=== PATIENT | male | born 1960 | race Caucasian/White ===

== ENCOUNTER 2025-03-15 06:20 | Day surgery (SDC) | payer OTHER ==
[~2025-03-15] VITALS: Ht 175.3 cm; Wt 104.5 kg
[~2025-03-15 06:20] MED LIST: ACETAMINOPHEN500 MG PO; ASPIR-LOW81 MG PO; GLIPIZIDE XL2.5 MG PO; IBUPROFEN600 MG PO; LIPITOR40 MG PO; LISINOPRIL2.5 MG PO; METFORMIN HCL500 M2 PO; MIDAZOLAM HCL 5 MG/5 ML VIAL IV PRN; OXYCODON-ACETA1 EAC2 PO; fentaNYL citrate 100 MCG/2 ML VIAL IV PRN
[2025-03-15 06:39] VITALS: BP 144/82
[2025-03-15] MEDS ORDERED: PRAVASTATIN SOD80 MG PO (06:41)
[2025-03-15] MEDS ORDERED: MIDAZOLAM HCL 5 MG/5 ML VIAL ONE (06:47)
[2025-03-15] MEDS ORDERED: fentaNYL citrate 100 MCG/2 ML VIAL ONE (06:47)
[2025-03-15] MEDS ORDERED: CEFAZOLIN SODIUM 2 GM/20 ML SYR IV SCH (07:00)
[2025-03-15] MEDS ORDERED: IBLOOD GLUCOSE TEST STRIP 1 EA TEST VI PRN (07:00)
[2025-03-15] MEDS ORDERED: LIDOCAINE HCL 1% 5 ML SDV INJ ONE (07:00)
[2025-03-15] MEDS ORDERED: LACTATED RINGER'S 1,000 ML IV SCH (07:00)
--- NOTE | 2025-03-15 07:20 | NUR ---
VISITED DURING SPIRITUAL CARE ROUNDS. PT SUPPORTED BY IN ROOM. BOTH IN OVERALL GOOD SPIRITS. NO IMMEDIATE NEEDS. REFORESTATION WORKER PROVIDED SUPPORTIVE PRESENCE, HOSPITALITY, PRAYER, FACILITATED INTERACTION WITH THERPAY ANIMAL. PT AND EXPRESSED GRATITUDE.
--- NOTE | 2025-03-15 08:44 | NUR ---
03/15/25 0844 Sophia Campos PATIENT REPOSITIONS HIMSELF ONTO HIS BACK. HOB IS ELEVATED. WATER GIVEN. PATIENT IS DRINKING THAT AND TOLERATING THAT WELL.
[2025-03-15 09:04] VITALS: BP 164/99
--- NOTE | 2025-03-16 11:56 | OR ---
[facility] [address], [place] [address] Signed DATE OF OPERATION: 03/15/2025 SURGEON: Casie Wade MD PREOPERATIVE DIAGNOSIS: History of polyps x3 in 2021. 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 PROCEDURE: Total colonoscopy to cecum with biopsy of ileocecal valve. ANESTHESIA: Intravenous sedation, fentanyl 100 mcg, Versed 6 mg. INDICATION: This 65-year-old white man is patient Dr. Sarah Gallego and known to me from the past having undergone colonoscopy in September 2021, where he was found to have three polyps excised by snare technique. They were all tubular adenomas, none of them with high-grade dysplasia. This included the right colon, cecum and rectum. He currently has no symptoms of bleeding diarrhea or constipation and no family history of colon cancer. 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 He is admitted at this time to undergo surveillance colonoscopy. He understands the risk of bleeding, infection, and perforation. FINDINGS: The prep was good. There were some kernels of colon indicative of some fiber of course. 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 There were no polyps, specifically no diverticula. DESCRIPTION OF PROCEDURE: The patient was brought to the endoscopy suite and placed in lateral decubitus position, given intravenous sedation to the point of slurred speech and nystagmus. Digital rectal examination was normal. An Olympus video colonoscope was passed in the rectum and manipulated throughout the colon ultimately intubating the cecum itself. The ileocecal valve appeared to have hyperplasia, though no specific polyp. It was biopsied. The scope was then withdrawn. Examination throughout showed no sign of polyps, diverticular formation, colitis, or Electronically Signed By: CASIE WADE MD 03/16/25 1156 PATIENT NAME: JUSTIN CARDENAS OPERATIVE REPORT DATE OF : 62 REPORT #: [id number] PHYSICIAN: CASIE WADE MD PCP: SARAH GALLEGO MD REPORT IS CONFIDENTIAL AND NOT TO BE RELEASED WITHOUT AUTHORIZATION [facility] [address], [place] [address] Signed cancer. There were few kernels of colon indicative of fiber intake during the prep time, but in general, the prep was quite good overall. Retroflexed view was normal. The scope was removed. The patient was taken to the recovery room in good condition. 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 PLAN: Recommend repeat colonoscopy in 10 years, sooner if clinically indicated. He will return to the ongoing care of Dr. Sarah Gallego. MD RICK Hall/MITCH /[id number] cc: Sarah Gallego MD Copies: SARAH GALLEGO DMD ~ Electronically Signed By: CASIE WADE MD 03/16/25 1156 PATIENT NAME: JUSTIN CARDENAS OPERATIVE REPORT DATE OF : 62 REPORT #: [id number] PHYSICIAN: CASIE WADE MD PCP: SARAH GALLEGO MD REPORT IS CONFIDENTIAL AND NOT TO BE RELEASED WITHOUT AUTHORIZATION
--- NOTE | 2025-03-17 20:24 | PATH ---
[facility] [address], [place] [address] Signed SPECIMEN(S): A ILEOCECAL VALVE COLON BIOPSY SPECIMEN SOURCE: A. ILEOCECAL VALVE COLON BIOPSY CLINICAL HISTORY: Personal history of polyps in 2021 FINAL PATHOLOGIC DIAGNOSIS: Colon, ileocecal valve, biopsy: - Ileocecal valve mucosa with minute foci of extravasated blood beneath the mucosal surface; consistent with procedure related change. - Otherwise no specific histopathologic abnormality identified. - Negative for acute, chronic, and granulomatous inflammation. - Negative for dysplasia and malignancy. SDL MICROSCOPIC EXAMINATION: Histologic sections of all submitted blocks are examined by light microscopy. These findings, together with the gross examination, support the pathologic diagnosis. GROSS DESCRIPTION: The specimen, labeled and designated "Neymar, ileocecal valve colon biopsy," is received in formalin and consists of one nguyen soft tissue fragment, 0.4 cm. Entirely submitted in (A1). VB (under the direct supervision of a pathologist) The Gross Description was prepared using a voice recognition system. The report was reviewed for accuracy; however, sound-alike word errors, addition and/or deletions may occur. If there are any questions about this report, please contact Client Services. ADDITIONAL NOTES: Immunohistochemical and/or in situ hybridization studies if performed in this case included appropriate positive controls that reacted as expected. This test was developed and its performance characteristics determined by [facility]. It has not been cleared or approved by the U.S. Food and Drug Administration. The FDA has determined that such clearance or approval is not necessary. This test is used for clinical purposes. It should not be regarded PATIENT NAME: JUSTIN CARDENAS PATHOLOGY DATE OF : 62 REPORT #: [id number] PHYSICIAN: RAMESH PATHOLOGY PCP: SARAH GALLEGO MD REPORT IS CONFIDENTIAL AND NOT TO BE RELEASED WITHOUT AUTHORIZATION [address] [address] Signed as investigational or for research. [facility] is certified under the Clinical Laboratory Improvement Amendments of 1988 (CLIA) as qualified to perform high complexity clinical laboratory testing. PERFORMING LABORATORY: Technical component was performed by [facility], [address] [place] [id number] (CLIA# [id number]). Professional interpretation was performed by [facility], [address] [place] [id number] (CLIA#: [id number]). Diagnostician: Salma Reich MD Pathologist Electronically Signed 03/17/2025 Copies: ~ PATIENT NAME: JUSTIN CARDENAS PATHOLOGY DATE OF : 62 REPORT #: [id number] PHYSICIAN: RAMESH PATHOLOGY PCP: SARAH GALLEGO MD REPORT IS CONFIDENTIAL AND NOT TO BE RELEASED WITHOUT AUTHORIZATION
== END 2025-03-15 09:10 | disposition home or self-care (01) ==
LOC: DS 06:20
PROVIDERS: ATTEND Surgery
PROC: 0DBC8ZX Excision of Ileocecal Valve, Via Natural or Artificial Opening Endoscopic, Diagnostic (ICD-10-PCS; principal; 2025-03-15 07:30)
DX: Z12.11 Encounter for screening for malignant neoplasm of colon (principal); K63.89 Other specified diseases of intestine; E78.5 Hyperlipidemia, unspecified; E66.01 Morbid (severe) obesity due to excess calories; Z68.34 Body mass index [BMI] 34.0-34.9, adult; Z86.0101 Personal history of adenomatous and serrated colon polyps; Z79.899 Other long term (current) drug therapy
CPT/HCPCS: 99153; G0500; J0690; J2250; J3010; J7121